=== PATIENT | female | born 1990 | race African-American/Black ===

== ENCOUNTER 2017-10-18 00:24 | Emergency (ER) | payer SELFPAY ==
[~2017-10-18] VITALS: Ht 172.7 cm; Wt 110.0 kg
[~2017-10-18 00:24] MED LIST: IBUP800T23 PO; METH750T2 PO
[2017-10-18 00:27] VITALS: BP 119/59; PULSE 72; RESP 16; TEMP 98.1; O2SAT 97
[2017-10-18] MEDS ORDERED: PENI500T PO (01:02)
--- NOTE | 2017-10-18 01:05 | PD ---
HPI Chief Complaint: ENT Complaint Time Seen by Provider: 00:55 Travel History International Travel<30 days: No Contact w/Intl Traveler<30days: No Traveled to known affect area: No History of Present Illness HPI 26-year-old black female presents to emergency department with complains of sore throat 1 week. Patient states that she has had some subjective fever, ear pain, sore throat and general malaise. She denies any shortness of breath or wheezing. No cough, nausea, vomiting, diarrhea, abdominal pain or urinary symptoms. Symptoms are moderate. No alleviating factors. No exacerbating factors. PFSH Past Medical History Medical History: Denies Significant Hx Diabetes: No Diminished Hearing: No Immune Disorder: No Immunizations Current: Yes Tetanus Vaccination: Unknown Influenza Vaccination: No ?: Not LMP: 10/10/17 Past Surgical History Surgical History: No Previous Surgery Social History Alcohol Use: No Tobacco Use: No Substance Use: No Allergies-Medications (Allergen,Severity, Reaction): Coded Allergies: No Known Allergies (Verified Adverse Reaction, Unknown, 10/18/17) Reported Meds & Prescriptions Reported Meds & Active Scripts Active Penicillin V Potassium 500 Mg Tab 500 Mg PO Q12HR Methocarbamol 750 Mg Tab 750 Mg PO Q8HR Ibuprofen 800 Mg Tab 800 Mg PO Q8HR PRN Review of Systems Except as stated in HPI: all other systems reviewed are Neg Physical Exam Narrative GENERAL: Well-developed, well-nourished in no acute distress. Nontoxic appearing. HEAD: Normocephalic, atraumatic. EYES: Pupils equal round and reactive. Extraocular motions intact. No scleral icterus. No injection or drainage. ENT: TMs clear without erythema. The external auditory canals clear. Nose: clear . Posterior pharynx is pink and moist. No tonsillar edema or exudate. Uvula midline. Airway patent. NECK: Trachea midline.Supple, nontender, moves head freely. No central bony tenderness or spasm. CARDIOVASCULAR: Regular rate and rhythm without murmurs, gallops, or rubs. RESPIRATORY: Clear to auscultation. Breath sounds equal bilaterally. No wheezes , rales, or rhonchi. GASTROINTESTINAL: Abdomen soft, non-tender, nondistended. No hepato-splenomegaly , or palpable masses. No guarding. EXTREMITIES: No clubbing, cyanosis, or edema. No joint tenderness, effusion, or edema noted. BACK: Nontender without deformity or crepitance. No flank tenderness. Data Data Last Documented VS Vital Signs Date Time Temp Pulse Resp B/P (MAP) Pulse Ox O2 Delivery O2 Flow Rate FiO2 10/18/17 00:27 98.1 72 16 119/59 (79) 97 Room Air Orders Orders Amoxicillin (Trimox) (10/18/17 01:15) Ed Discharge Order (10/18/17 01:01) MDM Medical Decision Making Medical Screen Exam Complete: Yes Emergency Medical Condition: Yes Medical Record Reviewed: Yes Differential Diagnosis MDM: High Differential diagnoses: Strep throat, viral pharyngitis, mono, peritonsillar abscess, retropharyngeal abscess, Kristopher's angina Narrative Course Patient's given amoxicillin 500 mg by mouth. This is acute pharyngitis Diagnosis Primary Impression: acute pharyngitis Patient Instructions: General Instructions Additional Instructions: Rest. Force fluids. Saltwater gargles. Tylenol and Advil. Chloraseptic Cut Off Cepastat lozenge. Pen-Vee K. Follow-up with a primary care doctor in one week. Return to the ER if any problems. Med/Other Pt SpecificInfo: Prescription(s) given Scripts Penicillin V Potassium (Penicillin V Potassium) 500 Mg Tab 500 MG PO Q12HR for Infection, #20 TAB 0 Refills Prov: Rock Rich MD 10/18/17 Disposition: 01 DISCHARGE HOME Condition: Stable Bang Yip Oct 18, 2017 01:05
[2017-10-18] MEDS ORDERED: AMOXICILLIN (TRIHYDRATE) 500 MG CAP PO ONE (01:15)
== END 2017-10-18 01:22 | disposition home or self-care (01) ==
LOC: NEPD 00:24
DX: J02.9 Acute pharyngitis, unspecified (principal)
CPT/HCPCS: 99283